=== PATIENT | female | born 1960 | race African-American/Black ===

== ENCOUNTER 2016-12-29 13:37 | Emergency (ER) | payer OTHER ==
[~2016-12-29] VITALS: Ht 167.6 cm; Wt 60.5 kg
--- NOTE | ~2016-12-29 | EKG ---
PATIENT: GIANNA MATTA UNIT #: [id number] Ventricular Rate: 53 BPM Atrial Rate: 53 BPM P-R Interval: 146 ms QRS Duration: 90 ms Q-T Interval: 436 ms QTC Calculation(Bezet): 409 ms P Stewardson: 63 degrees Calculated R Stewardson: 60 degrees Calculated T Stewardson: 25 degrees Diagnosis Line: Sinus bradycardia Diagnosis Line: Possible Left atrial enlargement Diagnosis Line: Left ventricular hypertrophy Diagnosis Line: Cannot rule out Septal infarct , age undetermined Diagnosis Line: Abnormal ECG Diagnosis Line: No previous ECGs available Diagnosis Line: Confirmed by JORDAN MORALES MD ([id number]) on 12/30/2016 Diagnosis Line: 7:10:10 PM INTERPRETING MD: CARMEN THRASHER
--- NOTE | ~2016-12-29 | CT71 ---
[facility] A Service of [facility] RADIOLOGY TEXT RESULTS PATIENT: GIANNA MATTA LOCATION: [facility] : 60 UNIT #: [id number] AGE: [address]: Clara Olivo MD SEX: F ORDER DR: [id number] [facility] [address] [place], [place] [address] [id number] E MR#: [id number] Acc #: [id number] NAME: GIANNA MATTA : 1960 SEX: F STUDY DATE/TIME: 12/29/2016 15:10 UNIT: [facility] ROOM: STUDY DESCRIPTION: CT Head Wo Contrast Attending Physician: Clara Olivo M.D. Ordering Physician: Ole Ta M.D. Primary Care Physician: Sergio Mendez M.D. MEDICAL IMAGING REPORT This report is preliminary unless electronic signature is present EXAM CT head. HISTORY Frontal headache since 12/28/2016. TECHNIQUE CT head performed skull base through vertex without intravenous contrast. This CT exam was performed with one or more of the following radiation dose reduction techniques: automatic exposure control, adjustment of mA and/or kV according to patient size, and iterative reconstruction. COMPARISON 04/28/2005. FINDINGS The brainstem is unremarkable. Cerebellum and cerebral hemispheres show normal maher matter - white matter differentiation. No hemorrhage. No evidence of acute cortical ischemia. The midline structures are nondisplaced. The basal ganglia are intact. The ventricles, cisterns and sulci are normal in size and contour. There is no intra or extraaxial mass effect or abnormal intracranial fluid collection. The intraorbital soft tissues are unremarkable. Visualized paranasal sinuses and mastoid air cells are clear. No fracture. IMPRESSION 1. Normal CT of the head. If patient has ongoing neurologic symptoms, consider follow up imaging. Dictated by... [facility] A Service [facility] RADIOLOGY TEXT RESULTS PATIENT: GIANNA MATTA LOCATION: [facility] : 60 UNIT #: [id number] AGE: [address]: Clara Olivo MD SEX: F ORDER DR: Trae España M.D. THIS IS AN ELECTRONICALLY VERIFIED REPORT Trae España M.D. at 12/31/2016 7:36 AM Isaac TD: 12/29/2016 23:56 JOB #: [id number] MEDICAL IMAGING REPORT Page 1 of 1 COPY
[~2016-12-29 13:37] MED LIST: "\\\"WATER PILL\\\""; ASPIRIN PO; ATARAX PO; HCTZ PO; MICRO-K PO; PREDNISONE PO; TENORETIC 50 TA1 TAB PO; [UNRECOGNIZED DRUG - OTHER] TOP
[2016-12-29 14:58] LABS: BASOPHIL# 0.1 X10e3 (0-0.3); BASOPHIL% 0.8 % (0-2.5); DIFF IND NO; EOSINOPHIL# 0.3 X10e3 (0-0.7); EOSINOPHIL% 4.2 % (0.0-7.0); HEMATOCRIT 44.3 % (35.0-45.0); HEMOGLOBIN 14.8 gm/dL (12.0-16.0); LYMPHOCYTE# 2.3 X10e3 (1.0-3.5); LYMPHOCYTE% 31.7 % (17.0-45.0); MEAN CELL VOLUME 90.1 FL (83-96); MEAN CORPUSCULAR HEMOGLOBIN 30.2 PG (28-34); MEAN CORPUSCULAR HGB CONC 33.5 g/dL (30-36); MONOCYTE# 0.5 X10e3 (0-1.0); MONOCYTE% 7.1 % (3.0-12.0); NEUTROPHIL% 56.2 % (40-75); PLATELET COUNT 223 X10e3 (140-420); RED BLOOD COUNT 4.91 X10e (3.90-5.30); RED CELL DISTRIBUTION WIDTH 13.9 % (11.0-15.5); WHITE BLOOD COUNT 7.1 X10e3 (4.0-10.5)
[2016-12-29 15:19] LABS: BUN/CREATININE RATIO 21.42; CALCIUM SERUM 9.7 mg/dL (8.4-10.2); CREATININE SERUM 0.7 mg/dL (0.6-1.4); GLOM FILT RATE Estimated 112.3 mL/min (>60); POTASSIUM 3.3 mmol/L (3.5-5.1)
[2016-12-29] MEDS ORDERED: ALBUTEROL20 ml INH (15:33)
[2016-12-29] MEDS ORDERED: TENORETIC PO (15:34)
== END 2016-12-29 17:29 | disposition home or self-care (01) ==
LOC: CED 13:37
PROVIDERS: Emergency Medicine
DX: I10 Essential (primary) hypertension (principal); J45.909 Unspecified asthma, uncomplicated; F17.200 Nicotine dependence, unspecified, uncomplicated; Z98.890 Other specified postprocedural states
CPT/HCPCS: 36415; 70450; 80048; 85025; 93005; 99285

== ENCOUNTER 2017-01-30 14:04 | Emergency (ER) | payer OTHER ==
[~2017-01-30] VITALS: Ht 167.6 cm; Wt 58.0 kg
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
[~2017-01-30 14:04] MED LIST changes: +ALBUTEROL20 ml INH; +TENORETIC PO
== END 2017-01-30 16:05 | disposition home or self-care (01) ==
LOC: CED 14:04 → CFTX 14:04
DX: S39.012A Strain of muscle, fascia and tendon of lower back, initial encounter (principal); I10 Essential (primary) hypertension; V49.40XA Driver injured in collision with unspecified motor vehicles in traffic accident, initial encounter
CPT/HCPCS: 70110; 71101; 99284